=== PATIENT | male | born 1925 | race Caucasian/White ===

== ENCOUNTER → 2016-09-13 | Day surgery (SDC) | payer MEDICARE, BC ==
[~2016-09-13] MED LIST: Lactated Ringers 1,000 ML IV SCH; Lidocaine 4% Top Soln 5 ML LTA Syringe ONE; Lidocaine 4% Top Soln 5 ML LTA Syringe TOP ONE; Propofol 200 MG/20 ML SDV IV ONE
[2016-09-13 09:36] VITALS: BP 104/57
--- NOTE | 2016-09-13 13:02 | OR ---
DATE OF OPERATION: 09/13/2016 PREOPERATIVE DIAGNOSIS: GASTROINTESTINAL BLEED. POSTOPERATIVE DIAGNOSIS: GASTROINTESTINAL BLEED. SURGEON: Beto Grissom MD PROCEDURE: 1. ESOPHAGOGASTRODUODENOSCOPY WITH CORDELL. 2. FULL-LENGTH COLONOSCOPY. 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 COMPLICATIONS: None. SPECIMEN: Antral CORDELL. FINDINGS: 1. Full-length EGD. 2. Hemorrhagic gastritis with multiple focal ulcers with adherent clot. 3. Essentially normal full-length colonoscopy with extremely poor bowel prep. RECOMMENDATIONS: The patient should be placed on proton pump therapy and his Coumadin should be held at this time along with his aspirin. Dr. Espinoza can decide if he would like him to have a followup scope in 6 weeks to ensure healing. INDICATIONS: The patient apparently is status post GI bleed. He is on chronic anticoagulation and unsure of the reason for this. Nevertheless, he was sent for upper and lower endoscopy. DESCRIPTION OF PROCEDURE: The patient was prepped and draped, placed in the left lateral decubitus position. A lubricated Olympus gastroscope was inserted over a bit, and easily advanced into the esophagus. Esophageal lining was benign in its entire course. The Z-line was crisp around 40 cm, no obvious hernia seen. The scope was advanced into the stomach through the pylorus into the third portion of duodenum and duodenal bulb, and second and third portion of duodenum were unremarkable. The scope was brought back into the stomach. Direct visualization of the distal fundus and antrum showed no obvious lesions. Retroflexion showed the upper fundus and mid portion of that had a multiple small hemorrhagic ulcers, 2 or 3, these had adherent clot and they were not biopsied. We did do a CLOtest of the antrum. No other identifiable etiologies of bleeding site were found and no other masses were seen. Air was suctioned from the stomach and the scope was removed without complication. A lubricated Olympus colonoscope was then inserted. The patient's prep was extremely poor. We were able to advance all the way over the right colon, but unable to visualize at all the cecal pouch or know if we were near it. The palpation of the scope in the right lower quadrant did show this scope was close throughout the right and most of the transverse areas, it is very difficult to visualize any obvious abnormalities. I could not see any obvious bleeding sites and there was no fresh blood throughout the length of the colon. The prep was better once we got past the splenic flexure, there was no overt diverticular disease, active colitis, or signs of any obvious mass. There would have been a very high likelihood of there were small polyps, we could not see them due to the amount of stool volume present. Multiple attempts to suction this were done, but these were unsuccessful. The rectal vault appeared unremarkable. No lesions were seen. Air was suctioned as best as possible. The scope was removed without complication. SHELLY/CHERYL /[id number]
== END ==
LOC: CC.SDS 07:36
PROVIDERS: ATTEND Family Medicine
DX: K25.4 Chronic or unspecified gastric ulcer with hemorrhage (principal); J44.9 Chronic obstructive pulmonary disease, unspecified; E78.5 Hyperlipidemia, unspecified; I10 Essential (primary) hypertension; N40.0 Benign prostatic hyperplasia without lower urinary tract symptoms; G45.9 Transient cerebral ischemic attack, unspecified; E55.9 Vitamin D deficiency, unspecified; F17.200 Nicotine dependence, unspecified, uncomplicated; Z79.01 Long term (current) use of anticoagulants; Z98.890 Other specified postprocedural states; Z72.0 Tobacco use
CPT/HCPCS: 00810; 36415; 43235; 45378; 85610; 87081; A9270; J2704; J7120